=== PATIENT | female | born 1990 ===

== ENCOUNTER 2024-02-20 14:28 | Outpatient (CLI) | payer OTHER | END 2024-02-20 14:32 | disposition home or self-care (01) | LOC: PRENATAL 14:28 | PROVIDERS: ATTEND Obstetrics & Gynecology Maternal & Fetal Medicine | DX: O35.9XX0 Maternal care for (suspected) fetal abnormality and damage, unspecified, not applicable or unspecified (principal); O35.3XX0 Maternal care for (suspected) damage to fetus from viral disease in mother, not applicable or unspecified; O99.282 Endocrine, nutritional and metabolic diseases complicating pregnancy, second trimester; O44.02 Complete placenta previa NOS or without hemorrhage, second trimester; Z3A.20 20 weeks gestation of pregnancy ==

== ENCOUNTER 2024-04-19 09:23 | Outpatient (CLI) | payer OTHER | END 2024-04-19 09:24 | disposition home or self-care (01) | LOC: PRENATAL 09:23 | PROVIDERS: ATTEND Obstetrics & Gynecology Maternal & Fetal Medicine | DX: O26.849 Uterine size-date discrepancy, unspecified trimester (principal); O99.280 Endocrine, nutritional and metabolic diseases complicating pregnancy, unspecified trimester; O99.019 Anemia complicating pregnancy, unspecified trimester; Z3A.28 28 weeks gestation of pregnancy ==

== ENCOUNTER → 2024-05-31 09:31 | Outpatient (CLI) | payer OTHER | END | disposition home or self-care (01) | LOC: PRENATAL 09:31 | PROVIDERS: ATTEND Obstetrics & Gynecology Maternal & Fetal Medicine | DX: O26.849 Uterine size-date discrepancy, unspecified trimester (principal); O36.8199 Decreased fetal movements, unspecified trimester, other fetus; O99.280 Endocrine, nutritional and metabolic diseases complicating pregnancy, unspecified trimester; Z3A.34 34 weeks gestation of pregnancy ==

== ENCOUNTER 2024-06-27 07:31 | Inpatient (IN) | payer OTHER ==
[~2024-06-27] VITALS: Ht 162.6 cm; Wt 92.1 kg
[2024-06-27] MEDS ORDERED: OXYTOCIN 500 ML IV SCH (09:00)
[2024-06-27 09:01] LABS: HEMATOCRIT 37.8 % (36.0-45.00); HEMOGLOBIN 13.1 g/dL (12.0-15.00); MEAN CORPUSCULAR HGB CONC 34.8 g/dl (32.0-36.0); PLATELET COUNT 218 K/uL (150-450); RED CELL DISTRIBUTION WIDTH 15.2 % (11.5-14.5)
[2024-06-27 09:20] LABS: PH,URINE 5.5 (5.0-8.0); URINE APPEARANCE Cloudy; URINE BILIRRUBIN Negative (NEGATIVE); URINE BLOOD Negative; URINE COLOR Yellow; URINE GLUCOSE Negative (NEGATIVE); URINE KETONE Negative (NEGATIVE); URINE LEUKOCYTE Small; URINE NITRATE Negative; URINE PROTEIN 30 (NEGATIVE)
[2024-06-27] MEDS ORDERED: TIROSINT50 MCG PO (09:21)
[2024-06-27] MEDS ORDERED: PRENATABS RX T1 EACH PO (09:21)
[2024-06-27 09:25] LABS: URINE CAST 2.74 uL (0.0-1.40); URINE EPITHELIAL CELLS 127.2 uL (0.0-38.8); URINE RBC 29.4 uL (0.0-20.8); URINE WBC 302.5 uL (0.0-23.2)
[2024-06-27 09:33] LABS: INR < 0.93; PARTIAL THROMBOPLASTIN TIME 27.3 SECONDS (22.0-34.0)
[2024-06-27 09:43] LABS: BILIRUBIN TOTAL 0.43 mg/dL (0.3-1.2); CALCIUM 8.9 mg/dL (8.5-10.1); CREATININE SERUM 0.55 mg/dL (0.55-1.02); GFR 127.29; GLOBULINA 3.5 G/DL (2.4-3.5); POTASSIUM 3.96 mEq/L (3.5-5.1); TOTAL PROTEIN 6.5 gm/dL (6.4-8.2)
[2024-06-27 09:49] LABS: URINE BACTERIA > 9821.5 uL (0.0-1933)
[2024-06-27 15:08] VITALS: BP 117/70
[2024-06-27 15:20] VITALS: BP 120/97
[2024-06-27 15:35] VITALS: BP 125/77
[2024-06-27] MEDS ORDERED: IBUprofen 400 MG TABLET PO PRN (15:45)
[2024-06-27] MEDS ORDERED: CHLORHEXIDINE GLUCONATE 120 ML BOTTLE TOP SCH (15:45)
[2024-06-27] MEDS ORDERED: OXYTOCIN 1,000 ML IV SCH (15:45)
[2024-06-27 15:50] VITALS: BP 132/76
[2024-06-27 17:40] VITALS: BP 105/74
[2024-06-27 19:19] VITALS: BP 103/68
[2024-06-27] MEDS ORDERED: SENNA/DOCUSATE SODIUM 1 TAB TABLET PO SCH (21:00)
[2024-06-28 01:13] VITALS: BP 100/70
[2024-06-28 05:10] VITALS: BP 100/65
[2024-06-28 09:27] VITALS: BP 110/75
[2024-06-28 14:04] VITALS: BP 110/75
[2024-06-28 16:28] VITALS: BP 108/69
[2024-06-29] VITALS: BP 90/60
[2024-06-29 08:55] VITALS: BP 100/55
[2024-06-29 10:52] LABS: MEAN CELL VOLUME 92.8 fL (80.00-100.00); MEAN CORPUSCULAR HGB CONC 34.5 g/dl (32.0-36.0); PLATELET COUNT 181 K/uL (150-450); RED BLOOD COUNT 2.07 M/uL (4.00-6.00); RED CELL DISTRIBUTION WIDTH 15.4 % (11.5-14.5)
[2024-06-29 10:58] LABS: HEMATOCRIT 19.2 % (36.0-45.00); HEMOGLOBIN 6.6 g/dL (12.0-15.00); MEAN CORPUSCULAR HEMOGLOBIN 31.8 pg (27.00-32.0)
[2024-06-29] MEDS ORDERED: SOD FERRIC GLUC COMPLX/SUCROSE 62.5 MG/5 ML AMPUL IV STA (11:35)
[2024-06-30 01:00] VITALS: BP 114/72
[2024-06-30 07:47] LABS: MEAN CELL VOLUME 94.1 fL (80.00-100.00); MEAN CORPUSCULAR HGB CONC 33.9 g/dl (32.0-36.0); PLATELET COUNT 187 K/uL (150-450); RED BLOOD COUNT 2.05 M/uL (4.00-6.00); RED CELL DISTRIBUTION WIDTH 15.3 % (11.5-14.5)
[2024-06-30 07:52] LABS: MEAN CORPUSCULAR HEMOGLOBIN 31.7 pg (27.00-32.0)
[2024-06-30 07:57] LABS: HEMATOCRIT 19.3 % (36.0-45.00)
[2024-06-30 07:59] LABS: HEMOGLOBIN 6.5 g/dL (12.0-15.00)
[2024-06-30] MEDS ORDERED: SOD FERRIC GLUC COMPLX/SUCROSE 62.5 MG/5 ML AMPUL IV SCH (09:00)
[2024-06-30] MEDS ORDERED: MAXFE CAPLET1 EAC1 PO (12:54)
== END 2024-06-30 17:27 | disposition home or self-care (01) | DRG 768 ==
LOC: LDR 07:31 → OB/GYN 16:25
PROVIDERS: Obstetrics & Gynecology; ADMIT Obstetrics & Gynecology; ATTEND Obstetrics & Gynecology
PROC: 10E0XZZ Delivery of Products of Conception, External Approach (ICD-10-PCS; principal; 2024-06-27)
PROC: 0DQR0ZZ Repair Anal Sphincter, Open Approach (ICD-10-PCS; 2024-06-27)
PROC: 4A1HXCZ Monitoring of Products of Conception, Cardiac Rate, External Approach (ICD-10-PCS; 2024-06-27)
DX: O70.21 Third degree perineal laceration during delivery, IIIa (principal); Z37.0 Single live birth; Z3A.38 38 weeks gestation of pregnancy; Z20.822 Contact with and (suspected) exposure to COVID-19